=== PATIENT | female | born 1960 | race Caucasian/White ===

== ENCOUNTER 2017-05-26 23:18 | Emergency (ER) | payer SELFPAY ==
[2017-05-27 00:34] VITALS: BP 112/84; PULSE 64; TEMP 97.4; BMI 29.2
--- NOTE | 2017-05-27 00:40 | PDOC ---
History of Present Illness <Maximus Corey - Last Filed: 05/27/17 01:08> - General History Source: Patient Exam Limitations: No Limitations - History of Present Illness Initial Comments: The patient is a 57 yo F with a past medical history significant for HLD, DM, fibroid uterus, who presents with R sided facial numbness since friday. The patient is urdu speaking. Patients son acted as a tomographic tech. The patient states the numbness has been getting progressively worse. The patient states when she drinks water it slips out the side of her mouth. The patient states her PCP is affiliated with [facility]. Allergies: NKDA PSHx: hysterectomy <Leighann Maldonado - Last Filed: 05/27/17 01:13> - General Chief Complaint: Pain Stated Complaint: PAIN ON RIGHT SIDE Time Seen by Provider: 05/27/17 00:39 NIH Stroke Scale - Last Known Well Date/Time & Onset Date Last Known Well: 05/24/17 Time Last Known Well: 07:00 - Initial Evaluation Level of consciousness: Alert Ask patient the month and their age: Answers both correctly Ask patient to open & close eyes; make fist and let go: Obeys both correctly Best gaze (horizontal eye movement): Normal Visual field testing: No visual field loss Facial paresis (Show teeth/raise eyebrows/close eyes tight): Minor paralysis ( flattened nasolabial fold, asymmetry on smiling) Motor Function: Left Arm: Normal Motor Function: Right Arm: Normal (extends arm 90 (or 45) degrees for 10 seconds without drift Motor Function: Left Leg: Normal (extends leg 30 degrees for 5 seconds without drift) Motor Function: Right Leg: Normal (extends leg 30 degrees for 5 seconds without drift) Limb Ataxia: No ataxia Sensory(Use pinprick test arms,legs,trunk,face/side to side): Normal Best language (Describe picture, name items, read sentences): No Aphasia Dysarthria (read several words): Normal articulation Extinction and Inattention: No abnormality (BELLS PALSY) - Total Score NIH Stroke Scale Score: 1 <Maximus Corey - Last Filed: 05/27/17 01:08> Past History - Past Medical History Anemia: No Asthma: No Cancer: No Cardiac Disorders: No CVA: No COPD: No CHF: No Dementia: No Diabetes: No GI Disorders: No Disorders: No HTN: No Hypercholesterolemia: No Liver Disease: No Seizures: No Thyroid Disease: No - Surgical History Abdominal Surgery: No Appendectomy: No Cardiac Surgery: No Cholecystectomy: No Lung Surgery: No Neurologic Surgery: No Orthopedic Surgery: No - Psycho/Social/Smoking Cessation Hx Suicidal Ideation: No Smoking History: Never smoked Have you smoked in the past 12 months: No Information on smoking cessation initiated: No Hx Alcohol Use: No Drug/Substance Use Hx: No Substance Use Type: None Hx Substance Use Treatment: No <Maximus Corey - Last Filed: 05/27/17 01:08> <KalebbenitoLeighann - Last Filed: 05/27/17 01:13> - Past Medical History Allergies/Adverse Reactions: Allergies Allergy/AdvReac Type Severity Reaction Status Date / Time No Known Drug Allergies Allergy Verified 05/27/17 00:31 Home Medications: Ambulatory Orders No Home Medications 1 UTDICT 09/06/13 Review of Systems - Review of Systems Able to Perform ROS?: Yes Comments:: GENERAL/CONSTITUTIONAL: No fever or chills. No generalized weakness. HEAD, EYES, EARS, NOSE AND THROAT: No change in vision. No ear pain or discharge. No sore throat. CARDIOVASCULAR: No chest pain or shortness of breath. RESPIRATORY: No cough, wheezing, or hemoptysis. GASTROINTESTINAL: No nausea, vomiting, diarrhea or constipation. GENITOURINARY: No dysuria, frequency, or change in urination. MUSCULOSKELETAL: No joint or muscle swelling or pain. No neck or back pain. SKIN: No rash NEUROLOGIC: +R sided facial weakness and loss of sensation. No headache, vertigo, loss of consciousness. ALLERGIC/IMMUNOLOGIC: No hives or skin allergy. <Leighann Maldonado - Last Filed: 05/27/17 01:13> *Physical Exam - Vital Signs Last Vital Signs Temp Pulse Resp BP Pulse Ox 97.4 F L 64 14 112/84 97 05/27/17 00:31 05/27/17 00:31 05/27/17 00:31 05/27/17 00:31 05/27/17 00:31 <Maximus Corey - Last Filed: 05/27/17 01:08> - Vital Signs Last Vital Signs Temp Pulse Resp BP Pulse Ox 97.4 F L 64 14 112/84 97 05/27/17 00:31 05/27/17 00:31 05/27/17 00:31 05/27/17 00:31 05/27/17 00:31 - Physical Exam Comments: GENERAL: Awake, alert, and fully oriented, in no acute distress HEAD: No signs of trauma EYES: PERRLA, EOMI, sclera anicteric, conjunctiva clear ENT: Auricles normal inspection, hearing grossly normal, nares patent, oropharynx clear without exudates. Moist mucosa NECK: Normal ROM, supple, no lymphadenopathy, JVD, or masses LUNGS: Breath sounds equal, clear to auscultation bilaterally. No wheezes, and no crackles HEART: Regular rate and rhythm, normal S1 and S2, no murmurs, rubs or gallops ABDOMEN: Soft, nontender, normoactive bowel sounds. No guarding, no rebound. No masses EXTREMITIES: Normal range of motion, no edema. No clubbing or cyanosis. No cords, erythema, or tenderness NEUROLOGICAL: R sided facial weakness. Normal speech, gait not assessed. SKIN: Warm, Dry, normal turgor, no rashes or lesions noted. <Leighann Maldonado - Last Filed: 05/27/17 01:13> Heart Score/ECG Review #1 Sinus bradycardia @ 57 bpm with sinus arrhythmia. <Leighann Maldonado - Last Filed: 05/27/17 01:13> ED Treatment Course - LABORATORY CBC & Chemistry Diagram: 05/27/17 01:04 05/27/17 01:04 <Leighann Maldonado - Last Filed: 05/27/17 01:13> Medical Decision Making - Medical Decision Making Will obtain Head CT to r/o stroke. Will reassess. <Leighann Maldonado - Last Filed: 05/27/17 01:13> *DC/Admit/Observation/Transfer - Discharge Dispostion Admit: No - Attestations Physician Attestion: 05/27/17 00:39 I, Dr. Maximus Corey, attest that this document has been prepared under my direction and personally reviewed by me in its entirety. I further attest, that it accurately reflects all work, treatment, procedures and medical decision -making performed by me. <Maximus Corey - Last Filed: 05/27/17 01:08> - Attestations Scribe Attestion: Documentation prepared by Leighann Mckennaia, acting as medical billing coordinator for Maximus Corey MD/DO. <Leighann Maldonado - Last Filed: 05/27/17 01:13> Diagnosis at time of Disposition: Carrasco's palsy - Discharge Dispostion Disposition: HOME - Referrals Referrals: Raj Rodarte MD [Staff Physician] - - Patient Instructions Printed Discharge Instructions: DI for Carrasco's Palsy Additional Instructions: Leighann Wear an eye patch at night. Use a straw to drink. See the Neurologst as soon as possible, Dr. Rodarte Return to us if worse or any new symptoms. Hope this resolves quickly Best- Dr. Maximus Corey
[2017-05-27 01:13] LABS: BASOPHIL 1.3 % (0-2.0); EOSINOPHIL 7.1 % (0-4.5); MCHC 33.8 g/dl (32.0-36.0); MEAN CELL VOLUME 82.9 fl (80-96); MEAN PLT VOLUME 8.8 fl (7.5-11.1); NEUTROPHILS 45.6 % (42.8-82.8); PLATELET COUNT 242 K/MM3 (134-434); WHITE BLOOD COUNT 6.9 K/mm3 (4.0-10.0)
[2017-05-27 01:27] LABS: INR 0.98 (0.82-1.09); PROTHROMBIN TIME (PATIENT) 10.8 SEC (9.98-11.88)
[2017-05-27 01:40] LABS: ALBUMIN 3.2 g/dl (3.4-5.0); ANION GAP 6 (8-16); CALCIUM 9.3 mg/dL (8.5-10.1); CO2 29 mmol/L (21-32); CREATININE 0.7 mg/dL (0.55-1.02); GLUCOSE,RANDOM 203 mg/dL (74-106); SGOT/AST 17 U/L (15-37); SGPT/ALT 36 U/L (12-78)
[2017-05-27 01:42] LABS: ALK PHOS 88 U/L (45-117); BILIRUBIN,TOTAL 0.4 mg/dL (0.2-1.0); TOT PROT 7.6 g/dl (6.4-8.2)
--- NOTE | 2017-05-27 11:16 | EKG ---
Test Reason : Blood Pressure : / mmHG Vent. Rate : 057 BPM Atrial Rate : 057 BPM P-R Int : 128 ms QRS Dur : 084 ms QT Int : 446 ms P-R-T Axes : 043 054 053 degrees QTc Int : 434 ms SINUS BRADYCARDIA WITH SINUS ARRHYTHMIA RSR' IN V2 WHEN COMPARED WITH ECG OF 24-JAN-2011 13:03, NO SIGNIFICANT CHANGE WAS FOUND CLINICAL CORRELATION IS RECOMMENDED Confirmed by THERESA VEGA MD ([id number]) on 05/27/2017 11:15:35 AM Referred By: Confirmed By:THERESA VEGA MD
== END 2017-05-27 04:17 | disposition home or self-care (01) ==
LOC: JER 23:18
DX: G51.0 Bell's palsy (principal); E78.5 Hyperlipidemia, unspecified; E11.9 Type 2 diabetes mellitus without complications; D25.9 Leiomyoma of uterus, unspecified
CPT/HCPCS: 36415; 70450-TC; 80053; 85025; 85610; 93005; 93010; 99281-25

== ENCOUNTER 2023-02-25 06:47 | Emergency (ER) | payer OTHER ==
[2023-02-25 06:55] VITALS: BP 149/84; PULSE 80; RESP 18; TEMP 98.3; BMI 31.4
[2023-02-25] MEDS ORDERED: IBUPROFEN 400 MG TABLET (FP) PO ONE ×2 (07:37→07:40)
== END 2023-02-25 09:40 | disposition home or self-care (01) ==
LOC: JER 06:47
DX: M25.561 Pain in right knee (principal)
CPT/HCPCS: 73564-TC-RT-FY; 99283-25